=== PATIENT | male | born 1965 | race African-American/Black ===

== ENCOUNTER 2024-10-26 13:17 | Inpatient (IN) | payer OTHER ==
[2024-10-26 14:24] VITALS: BMI 28.0
[2024-10-26] MEDS ORDERED: POLYETHYLENE GLYCOL (HEALTHYLAX) 3350 17 GM PACKET PO PRN (15:59)
[2024-10-26] MEDS ORDERED: LOPERAMIDE HCL 2 MG CAPSULE PO PRN (15:59)
[2024-10-26] MEDS ORDERED: MAGNESIUM HYDROX 2400MG/30ML ORAL SUSPENSION 30 ML CUP PO PRN (15:59)
[2024-10-26] MEDS ORDERED: MAG HYDROX/AL HYDROX/SIMETH 30 ML UNIT-DOSE CUP PO PRN (15:59)
[2024-10-26] MEDS ORDERED: BENZONATATE 200 MG CAPSULE PO PRN (15:59)
[2024-10-26] MEDS ORDERED: IBUPROFEN 400 MG TABLET (FP) PO PRN (15:59)
[2024-10-26] MEDS ORDERED: IBUPROFEN 600 MG TABLET (FP) PO PRN (15:59)
[2024-10-26] MEDS ORDERED: hydrOXYzine PAMOATE 25 MG CAPSULE (FP) PO PRN (15:59)
[2024-10-26] MEDS ORDERED: NALOXONE (NARCAN) HCL 4 MG/0.1 ML SPRAY NS PRN (15:59)
[2024-10-26] MEDS ORDERED: ACETAMINOPHEN 325 MG TABLET (FP) PO PRN (15:59)
[2024-10-26] MEDS ORDERED: BENZOCAINE/MENTHOL (CHLORASEPTIC ) LOZENGE MM PRN (15:59)
[2024-10-26] MEDS: glipiZIDE 10 MG TABLET (FP) PO SCH (18:16)
[2024-10-26] MEDS: metFORMIN HCL 500 MG TABLET (FP) PO SCH (21:27)
[2024-10-26] MEDS: MELATONIN 5 MG TABLETS PO SCH (21:27)
[2024-10-26] MEDS: THIAMINE 100 MG TABLET PO SCH (21:27)
[2024-10-26] MEDS: ATORVASTATIN CA 40 MG TABLET (FP) PO SCH (21:27)
[2024-10-26] MEDS ORDERED: METFORMIN HCL 1000 MG PO SCH (22:00)
[2024-10-26] MEDS: TUBERCULIN PPD 5 TU/0.1ML SYRINGE (IN PATIENT USE ONLY) ID ONE (22:18)
[2024-10-27] MEDS ORDERED: LEVOTHYROXINE NA 75 MCG TABLET (FP) PO SCH (07:00)
[2024-10-27] MEDS ORDERED: amLODIPine BESYLATE 10 MG TABLET (FP) PO SCH (10:00)
[2024-10-27] MEDS: PRENATAL VITAMINS W/ FOLIC ACID TABLET (FP) PO SCH (10:20)
[2024-10-27] MEDS: LEVOTHYROXINE NA 25 MCG TABLET (FP) PO SCH (10:22)
[2024-10-27 11:27] LABS: HEMATOCRIT 33.6 % (35.4-49); HEMOGLOBIN 10.8 GM/dL (11.7-16.9); MCH 30.4 pg (25.7-33.7); MEAN PLT VOLUME 10.1 fl (7.5-11.1); PLATELET COUNT 183 10^3/uL (134-434); RBC 3.54 M/mm3 (4.00-5.60); RDW 13.7 % (11.9-15.9); WHITE BLOOD COUNT 6.8 K/mm3 (4.0-10.0)
[2024-10-27 11:43] LABS: CHLORIDE 106 mmol/L (98-107); POTASSIUM 4.4 mmol/L (3.5-5.1); SODIUM 140 mmol/L (136-145)
[2024-10-27] MEDS: DIVALPROEX SODIUM 250 MG TABLET E.C. PO SCH (11:47)
[2024-10-27 11:53] LABS: ALBUMIN 2.9 g/dl (3.4-5.0); ANION GAP 4 mmol/L (4-13); BLOOD UREA NITROGEN 19.6 mg/dL (7-18); CALCIUM 8.4 mg/dL (8.5-10.1); CO2 31 mmol/L (21-32); GLUCOSE,RANDOM 93 mg/dL (74-106)
[2024-10-27 11:56] LABS: CREATININE 1.4 mg/dL (0.55-1.3); SGOT/AST 16 U/L (15-37); SGPT/ALT 24 U/L (13-61)
[2024-10-27 11:58] LABS: BILIRUBIN,TOTAL 0.5 mg/dL (0.2-1); TOT PROT 5.2 g/dl (6.4-8.2)
[2024-10-27 11:59] LABS: ALK PHOS 122 U/L (45-117)
[2024-10-27 17:27] LABS: PH,URINE 6.5 (5.0-8.0); URINE APPEARANCE Clear; URINE BILIRUBIN Negative (NEGATIVE); URINE COLOR Yellow; URINE GLUCOSE (UA) Negative (NEGATIVE); URINE KETONE Negative (NEGATIVE); URINE LEUK ESTERASE 1+ (NEGATIVE); URINE NITRITE Negative (NEGATIVE); URINE PROTEIN Negative (NEGATIVE)
[2024-10-27] MEDS ORDERED: TUBERCULIN PPD 5 TU/0.1ML VIAL ID ONE (20:02)
[2024-10-27] MEDS: traZODone HCL 50 MG TABLET (FP) PO SCH (21:26)
[2024-10-28] MEDS: guaiFENesin 600 MG TABLET.ER (FP) PO PRN (21:18)
[2024-10-29] MEDS: risperiDONE 1 MG TABLET PO SCH (11:05)
[2024-10-29] MEDS: LORazepam 0.5 MG TABLET PO PRN (11:05)
[2024-10-29] MEDS: FERROUS SO4 325 MG TABLET (FP) PO SCH (11:06)
[2024-10-29] MEDS: BENZTROPINE MESYLATE 1 MG TABLET PO SCH (11:58)
[2024-10-31] MEDS: risperiDONE 1 MG TABLET PO SCH (21:30)
[2024-10-31] MEDS: BENZTROPINE MESYLATE 1 MG TABLET PO SCH (21:30)
[2024-11-03] MEDS: NALTREXONE HCL 50 MG TABLET PO ONE (11:00)
[2024-11-03] MEDS: BENZTROPINE MESYLATE 1 MG TABLET PO SCH (21:13)
[2024-11-04] MEDS: NALTREXONE HCL 50 MG TABLET PO SCH (09:47)
[2024-11-06] MEDS: metFORMIN HCL 500 MG TABLET (FP) PO SCH (16:49)
[2024-11-09] MEDS: risperiDONE MICROSPHERES 37.5 MG/2 ML ML IM ONE (10:52)
[2024-11-09] MEDS: FUROSEMIDE 20 MG TABLET (FP) PO ONE (15:01)
[2024-11-09] MEDS: PETROLATUM, WHITE 30 GM TUBE TP SCH ×2 (16:10→16:44)
[2024-11-10] MEDS ORDERED: MINERAL OIL/PET HY-PHL TOPICAL OINTMENT 454 GM JAR TP SCH (10:00)
[2024-11-10] MEDS: FUROSEMIDE 20 MG TABLET (FP) PO SCH (11:25)
[2024-11-10] MEDS: FUROSEMIDE 20 MG TABLET (FP) PO ONE (15:51)
[2024-11-12] MEDS: NALTREXONE MICROSPHERES (VIVITROL) 380 MG DISP.SYRIN IM ONE (07:22)
[2024-11-12 09:04] VITALS: BP 141/98; PULSE 103; RESP 18; TEMP 97.5
[2024-11-12] MEDS: NALOXONE (NYS OPIOID OVERDOSE PROGRAM) 4 MG/0.1 ML SPRAY NS SCH (09:31)
[2024-11-15] MEDS ORDERED: NALTREXONE MICROSPHERES (VIVITROL) 380 MG DISP.SYRIN IM ONE (10:00)
== END 2024-11-12 09:25 | disposition home or self-care (01) | DRG 772 ==
LOC: YASAS 13:17 → Y3E 17:20
PROVIDERS: ADMIT Psychiatry & Neurology Pain Medicine; ATTEND Family Medicine Addiction Medicine
PROC: HZ42ZZZ Group Counseling for Substance Abuse Treatment, Cognitive-Behavioral (ICD-10-PCS; principal; 2024-10-26)
DX: F14.20 Cocaine dependence, uncomplicated (principal); F17.210 Nicotine dependence, cigarettes, uncomplicated; F31.9 Bipolar disorder, unspecified; F25.9 Schizoaffective disorder, unspecified; F19.282 Other psychoactive substance dependence with psychoactive substance-induced sleep disorder; I25.10 Atherosclerotic heart disease of native coronary artery without angina pectoris; I11.0 Hypertensive heart disease with heart failure; I50.9 Heart failure, unspecified; E78.00 Pure hypercholesterolemia, unspecified; E03.9 Hypothyroidism, unspecified; E11.9 Type 2 diabetes mellitus without complications; Z79.84 Long term (current) use of oral hypoglycemic drugs; L30.9 Dermatitis, unspecified; Z86.73 Personal history of transient ischemic attack (TIA), and cerebral infarction without residual deficits; Z95.0 Presence of cardiac pacemaker; Z88.0 Allergy status to penicillin
CPT/HCPCS: 36415; 80053; 80164; 80307; 81003; 82962; 83036; 84439; 84443; 85027; 86780; 93005; 93010; J2315